=== PATIENT | male | born 1985 | race Caucasian/White ===

== ENCOUNTER 2019-05-05 16:00 | Outpatient (RCR) | payer OTHER | END 2019-06-28 | disposition still patient (30) | LOC: WSC | DX: Z98.890 Other specified postprocedural states (principal) ==

== ENCOUNTER → 2020-08-09 | Outpatient (CLI) | payer BC | LOC: COL.RAD 08:46 | DX: M25.511 Pain in right shoulder (principal) | CPT/HCPCS: A9585; Q9967 ==

== ENCOUNTER 2020-08-23 08:24 | Outpatient (RCR) | payer BC | END 2020-08-30 08:28 | disposition home or self-care (01) | LOC: WSPT 08:24 | DX: M25.511 Pain in right shoulder (principal) ==

== ENCOUNTER 2020-12-05 08:30 | Outpatient (RCR) | payer BC | END 2020-12-06 | disposition home or self-care (01) | LOC: WSPT | DX: M25.511 Pain in right shoulder (principal) ==

== ENCOUNTER 2020-12-11 15:45 | Outpatient (RCR) | payer BC | END 2020-12-11 17:00 | disposition home or self-care (01) | LOC: WSPT 15:45 | DX: Z98.890 Other specified postprocedural states (principal) ==